=== PATIENT | female | born 1965 | race Caucasian/White ===

== ENCOUNTER 2019-03-10 18:01 | Emergency (ER) | payer MEDICAID ==
[~2019-03-10] VITALS: Ht 160 cm; Wt 53.2 kg
[~2019-03-10 18:01] MED LIST: DOCU-144 PO; HYDR-4011 PO
[2019-03-10 18:03] VITALS: Ht 160 cm; Wt 53.2 kg
[2019-03-10] MEDS ORDERED: SOD CHLORIDE 0.9% 1,000 ML IV STA (20:08)
[2019-03-10] MEDS ORDERED: morphine 4 MG/ML VIAL IV STA (20:08)
[2019-03-10] MEDS ORDERED: ONDANSETRON 4 MG INJ IV STA (20:08)
[2019-03-10] MEDS ORDERED: IOHEXOL 300MG/ML 150 ML BTL ONE (21:57)
[2019-03-10] MEDS ORDERED: SOD CHLORIDE 0.9% 100 ML ONE (21:57)
[2019-03-11] VITALS: BP 96/99; PULSE 100; RESP 18
== END 2019-03-11 00:20 | disposition home or self-care (01) ==
LOC: E/R 18:01
DX: R10.13 Epigastric pain (principal); R10.32 Left lower quadrant pain; Z85.3 Personal history of malignant neoplasm of breast
CPT/HCPCS: 74177; 80053; 82150; 83690; 84484; 85025; 85610; 85730; 93005; 96374; 96375; J2270; J2405; J7030; Q9967; Z7502; Z7610